=== PATIENT | male | born 1970 | race Caucasian/White ===

== ENCOUNTER 2021-01-20 13:15 | Inpatient (IN) | payer OTHER ==
[~2021-01-20] VITALS: Ht 175.3 cm; Wt 88.9 kg
[2021-01-20 13:23] VITALS: BP 173/88
[2021-01-20 15:58] LABS: HEMATOCRIT 24.9 % (42.0-52.0); HEMOGLOBIN 8.5 gm/dL (14.0-18.0); MCH 32.3 pg (26.0-34.0); MCHC 34.1 g/dL (28.0-37.0); MCV 94.6 fL (80.0-100.0); MPV 7.2 fl. (7.2-11.1); NUCLEATED RBCS 0 /100WBC; PLATELET COUNT* 190 thou/uL (150-400); RBC 2.64 mil/uL (4.50-6.00)
[2021-01-20 16:15] LABS: CALCIUM 8.4 mg/dL (8.5-10.1); CREATININE 0.7 mg/dL (0.6-1.3)
[2021-01-20 16:28] LABS: URINE BLOOD NEGATIVE (Negative); URINE COLOR YELLOW; URINE GLUCOSE-RANDOM NEGATIVE (Negative); URINE KETONES TRACE (Negative); URINE LEUKOCYTES-REFLEX NEGATIVE (Negative); URINE PROTEIN 1+ (Negative); URINE SPECIFIC GRAVITY 1.025 (1.005-1.030)
[2021-01-20 16:29] LABS: ALBUMIN 2.8 g/dL (3.4-5.0); TOTAL BILIRUBIN 0.8 mg/dL (<0.1-1.0); TOTAL PROTEIN 6.5 g/dL (6.4-8.2)
[2021-01-20 16:30] LABS: POTASSIUM 2.3 mmol/L (3.5-5.1)
[2021-01-20 16:30] LABS: ICTOTEST (BILI CONFIRMATORY) Negative (Negative); URINE BILIRUBIN 2+ (Negative); URINE NITRITE-REFLEX POSITIVE (Negative)
[2021-01-20 16:31] LABS: URINE CLARITY CLOUDY
[2021-01-20 16:35] LABS: ABSOLUTE BASOPHILS 0.1 thou/uL (0.0-0.2); ABSOLUTE EOSINOPHILS 0.1 thou/uL (0.0-0.7); ABSOLUTE LYMPHOCYTES 0.4 thou/uL (0.8-5.3); ABSOLUTE MONOCYTES 0.1 thou/uL (0.0-1.2); ABSOLUTE NEUTROPHILS 6.4 thou/uL (1.6-8.1); PLATELET ESTIMATE ADEQUATE
[2021-01-20 16:38] LABS: SQUAMOUS 0-3 Few /LPF (0-3)
[2021-01-20 16:39] LABS: AMORPHOUS URATES Many /LPF (None Seen); AMP/METHAMP Negative (Negative); BACTERIA-REFLEX None Seen /HPF (None Seen); BARBITURATES Negative (Negative); BENZODIAZEPINES Negative (Negative); CASTS None Seen /LPF (None Seen); COCAINE Negative (Negative); METHADONE Negative (Negative); OPIATES Negative (Negative); PCP Negative (Negative); THC Negative (Negative); URINE RBC None Seen /HPF (0-2); URINE WBC-REFLEX None Seen /HPF (0-5)
--- NOTE | 2021-01-20 18:03 | NUR ---
PT GIVEN A DINNER TRAY.
--- NOTE | 2021-01-20 18:06 | NUR ---
PT UP TO USE THE RESTOOM ASSISTED BY TECH.
--- NOTE | 2021-01-20 21:04 | NUR ---
PER DR MARES, PT CAN HAVE REGULAR DIET UNTIL MIDNIGHT, NPO AFTER. PT WILL GO TO SURGERY AT 0900 01/21/21
[2021-01-20 22:15] VITALS: BP 132/67
[2021-01-21] VITALS (7 sets, daily range): BP systolic 109–165; BP diastolic 68–90
[2021-01-21] MEDS ORDERED: ALLER-CHLOR4 MG PO (10:21)
--- NOTE | 2021-01-21 10:51 | EKG ---
[place] [address] ELECTROCARDIOGRAM REPORT Name: MANUEL WHITFIELD Room: [address] ADM IN [facility].#: [id number] Admission: 01/21/21 Attend Phys: Paulette Kilpatrick Discharge: Date of : 66 Date of Service: 01/20/21 1559 Report #: [id number] THIS REPORT FOR: //name// [facility] ED Test Date: 2021-01-20 Test Time: 15:59:48 Pat Name: MANUEL WHITFIELD Department: Room: [facility] Gender: M Family Program Specialist: KRISTY : 1970 Requested By: Barbara Lai Order Number: [id number] MD: Roger Herbert Measurements Intervals [place] Rate: 54 P: 67 NE: 167 QRS: 60 QRSD: 110 T: 66 QT: 502 QTc: 476 Interpretive Statements Sinus bradycardia Borderline ST depression, anterolateral leads Borderline prolonged QT interval No previous ECG available for comparison Electronically Signed On 01-21-2021 10:51:17 CDT by Roger Herbert [email or web address] <ELECTRONICALLY SIGNED> By: Roger Herbert MD, FAC 01/21/21 1051 1559 1559 Roger Herbert MD, [facility] /EPI
[2021-01-21 10:53] LABS: HEMATOCRIT 23.6 % (42.0-52.0); MCH 32.4 pg (26.0-34.0); MCHC 33.9 g/dL (28.0-37.0); MCV 95.7 fL (80.0-100.0); MPV 7.6 fl. (7.2-11.1); RBC 2.47 mil/uL (4.50-6.00); RDW-CV 16.3 % (10.5-14.5)
[2021-01-21 11:00] LABS: CALCIUM 6.9 mg/dL (8.5-10.1); CREATININE 0.5 mg/dL (0.6-1.3)
[2021-01-21 11:04] LABS: POTASSIUM 2.7 mmol/L (3.5-5.1)
[2021-01-21 18:16] LABS: MAGNESIUM 1.1 mg/dL (1.8-2.4); POTASSIUM 3.1 mmol/L (3.5-5.1)
[2021-01-22 04:00] VITALS: BP 146/95
[2021-01-22 05:47] LABS: HEMATOCRIT 25.3 % (42.0-52.0); HEMOGLOBIN 8.6 gm/dL (14.0-18.0); MCH 32.6 pg (26.0-34.0); MCHC 34.1 g/dL (28.0-37.0); MCV 95.7 fL (80.0-100.0); MPV 7.4 fl. (7.2-11.1); RBC 2.65 mil/uL (4.50-6.00); RDW-CV 16.5 % (10.5-14.5); WBC 9.9 thou/uL (4.0-11.0)
[2021-01-22 05:59] LABS: CALCIUM 6.8 mg/dL (8.5-10.1); CREATININE 0.5 mg/dL (0.6-1.3); POTASSIUM 3.4 mmol/L (3.5-5.1)
[2021-01-22 08:47] LABS: MAGNESIUM 1.7 mg/dL (1.8-2.4)
[2021-01-22 09:00] VITALS: BP 159/101
[2021-01-22 12:17] VITALS: BP 133/91
[2021-01-22 16:00] VITALS: BP 150/98
[2021-01-22 20:16] VITALS: BP 150/99
[2021-01-23 03:53] VITALS: BP 151/97
[2021-01-23 04:55] LABS: HEMOGLOBIN 8.1 gm/dL (14.0-18.0); MCH 33.1 pg (26.0-34.0); MCHC 33.9 g/dL (28.0-37.0); MCV 97.5 fL (80.0-100.0); MPV 7.4 fl. (7.2-11.1); RBC 2.46 mil/uL (4.50-6.00); RDW-CV 15.9 % (10.5-14.5); WBC 8.9 thou/uL (4.0-11.0)
[2021-01-23 05:14] LABS: CALCIUM 6.6 mg/dL (8.5-10.1); CREATININE 0.7 mg/dL (0.6-1.3); POTASSIUM 3.6 mmol/L (3.5-5.1)
--- NOTE | 2021-01-23 05:59 | NUR ---
PT A&OX4, VSS ON ROOM AIR. SR, PVC'S ON TELE MONITOR. PT STATES PAIN 4/10, REFUSED PAIN MEDICATION. IV SALINE LOCKED. PT DIET ORDER NPO AFTER MIDNIGHT, HOWEVER, PT STATES PHYSICAIN INFORMED HIM HIS LAP KATELYN WOUND NOT BE DONE UNTIL ; ALSO, PER DR. BORRERO'S NOTES SURGERY WILL BE ON 01/24 SO PT ALLOWED REG DIET AT THIS TIME. PT SLEEPING WILL. PT'S AM MAGNISIUM 1.3, REPLACEMENT STARTED ORDERED PER ELECTROLYTE PROTOCOL. WILL CONTINUE TO MONITOR.
[2021-01-23 07:30] VITALS: BP 169/99
--- NOTE | 2021-01-23 09:50 | NUR ---
WOUND NURSE: PATIENT SEEN TO ADDRESS UNSTAGEABLE PRESSURE INJURY TO LEFT SACRUM. MEASURES 2.0 X 3.0 CM. UNABLE TO DETERMINE DEPTH DUE TO PRESENCE OF NECROTIC TISSUE IN THE WOUND BED. WOUND EDGES ARE SHALLOW, PINK, IRREGULAR. PATIENT REPORTING HE OBTAINED THE WOUND FROM SPENDING TIME IN HIS CARE DUE TO HOMELESSNESS. STATES HE WOUND SPEND LONG PERIODS OF TIME IN THE BACK SEAT. PATIENT REPORTS VERY PAINFUL TO TOUCH. SMALL AMOUNT OF SEROUSANGUINOUS DRAINAGE. SURGERY DEPT HERE AND SAW PATIENT. FIRMLY ADHERENT SLOUGH IN THE WOUND BED MAY REQUIRE DEBRIDEMENT. PATIENT INSTRUCTED ON MEASURES TO PROMOTE HEALING AND PREVENT COMPLICATIONS. PATIENT STATES HE UNDERSTANDS. WOUND CARE PROVIDED PRESCRIBED.
--- NOTE | 2021-01-23 10:19 | NUR ---
CM ASSESSMENT: PT A&O, INDEPENDENT WITH ADL'S, ACTIVE AND WORKS OUTSIDE THE HOME. PT USES 0 DME. PT HAS 0 HX OF HH OR SNF. REVIEW OF PT'S CHART INFORMS THAT THE PT IS CURRENTLY UNINSURED. PT CONFIRMS THIS. MED ASSIST COMPLETED ASSESSMENT, AND PT DOES NOT QUALIFY FOR MEDICAID. CM PROVIDED PT WITH COMMUNITY RESOURCE INFO AND PRINTED INFO FOR [facility]'S GOLD PLAN (INCLUDING APPLICATION) AND HOW TO APPLY ONLINE. CM WILL REMAIN AVAILABLE TO ASSIST AND FOLLOW NEEDED.
[2021-01-23 12:00] VITALS: BP 135/89
[2021-01-23 16:00] VITALS: BP 126/86
[2021-01-23 16:01] LABS: HEMATOCRIT 25.9 % (42.0-52.0); HEMOGLOBIN 8.6 gm/dL (14.0-18.0); MCH 32.3 pg (26.0-34.0); MCHC 33.3 g/dL (28.0-37.0); MCV 96.9 fL (80.0-100.0); MPV 7.2 fl. (7.2-11.1); NUCLEATED RBCS 0 /100WBC; PLATELET COUNT* 162 thou/uL (150-400); RBC 2.67 mil/uL (4.50-6.00); RDW-CV 16.6 % (10.5-14.5); WBC 8.6 thou/uL (4.0-11.0)
[2021-01-23 16:15] LABS: ALBUMIN 2.1 g/dL (3.4-5.0); CALCIUM 6.8 mg/dL (8.5-10.1); CREATININE 0.6 mg/dL (0.6-1.3); PHOSPHORUS* 1.8 mg/dL (2.5-4.9); POTASSIUM 3.7 mmol/L (3.5-5.1); TOTAL BILIRUBIN 0.5 mg/dL (<0.1-1.0); TOTAL PROTEIN 5.5 g/dL (6.4-8.2)
[2021-01-23 16:57] LABS: ABSOLUTE LYMPHOCYTES 0.3 thou/uL (0.8-5.3); ABSOLUTE MONOCYTES 0.3 thou/uL (0.0-1.2); ABSOLUTE NEUTROPHILS 7.9 thou/uL (1.6-8.1)
[2021-01-23 16:58] LABS: HYPOCHROMASIA Occasional; MACROCYTES Occasional; PLATELET ESTIMATE ADEQUATE
--- NOTE | 2021-01-23 17:08 | 2DMMODE ---
[place] [address] 2 D/M-MODE ECHOCARDIOGRAM Name: MANUEL WHITFIELD Room: [address] IN [place]#: [id number] Admission: 01/21/21 Attend Phys: Paulette Kilpatrick Discharge: Date of : 66 Date of Service: 01/23/21 1708 Report #: [id number] THIS REPORT FOR: cc: FAM - No family physician/PCP FAM - No family physician/PCP Roger Herbert MD [facility] ~ APPROVED REPORT Study performed: 01/23/2021 16:03:48 EXAM: Comprehensive 2D, Doppler, and color-flow Echocardiogram Patient Location: In-Patient Room #: 229 BSA: 1.92 HR: 68 bpm BP: 169/99 mmHg Other Information Study Quality: Good Indications Peripheral Edema 2D Dimensions IVSd: 10.77 (7-11mm) LVOT Diam: 20.18 (18-24mm) LVDd: 46.49 mm PWd: 10.77 (7-11mm) Ascending Ao: 35.63 (22-36mm) LVDs: 26.89 (25-40mm) Aortic Root: 36.83 mm Volumes Left Atrial Volume (Systole) LA ESV Index: 28.10 mL/m2 Aortic Valve AoV Peak Andrea.: 1.14 m/s AO Peak Gr.: 5.22 mmHg LVOT Max P.35 mmHg AO Mean Gr.: 2.79 mmHg LVOT Mean P.00 mmHg LVOT Max V: 1.04 m/s AO V2 VTI: 22.27 cm LVOT Mean V: 0.65 m/s GUTIERREZ (VTI): 3.73 cm2 LVOT V1 VTI: 25.97 [place] [address] 2 D/M-MODE ECHOCARDIOGRAM Name: MANUEL WHITFIELD Room: [address] IN [facility]#: [id number] Admission: 01/21/21 Attend Phys: Paulette Kilpatrick Discharge: Date of : 66 Date of Service: 01/23/21 1708 Report #: [id number] E/A Ratio: 1.21 MV Decel. Time: 186.47 ms MV E Max Andrea.: 0.86 m/s MV PHT: 54.08 ms MVA (PHT): 4.07 cm2 TDI E/Lateral E': 5.73 E/Medial E': 6.14 Medial E' Andrea.: 0.14 m/s Lateral E' Andrea.: 0.15 m/s Pulmonary Valve PV Peak Andrea.: 0.99 m/s PV Peak Gr.: 3.94 mmHg Left Ventricle The left ventricle is normal size. There is normal LV segmental wall motion. There is normal left ventricular wall thickness. Left ventricular systolic function is normal. The left ventricular ejection fraction is within the normal range. LVEF is 55-60%. The left ventricular diastolic function is normal. Right Ventricle The right ventricle is normal size. The right ventricular systolic function is normal. Atria The left atrium size is normal. The right atrium size is normal. Aortic Valve The Aortic valve is sclerotic. No aortic regurgitation is present. There is no aortic valvular stenosis. Mitral Valve The mitral valve is normal in structure. There is trace mitral valve regurgitation noted. No evidence of mitral valve stenosis. Tricuspid Valve The tricuspid valve is normal in structure. There is trace tricuspid valve regurgitation noted. Pulmonic Valve The pulmonary valve is normal in structure. There is no pulmonic valvular regurgitation[place] [address] 2 D/M-MODE ECHOCARDIOGRAM Name: MANUEL WHITFIELD Room: [address] IN [facility]#: [id number] Admission: 01/21/21 Attend Phys: Paulette Kilpatrick Discharge: Date of : 66 Date of Service: 01/23/21 1708 Report #: [id number] The aortic root is normal in size. IVC is normal in size and collapses >50% with inspiration. Pericardium There is no pericardial effusion. <Conclusion> LVEF is 55-60%. The Aortic valve is sclerotic. <ELECTRONICALLY SIGNED> By: Roger Herbert MD, [facility] 01/23/211707 07 07 Roger Herbert MD, [facility] /INF
--- NOTE | 2021-01-23 18:32 | NUR ---
mag level 1.3 this am. pt was dosed per electrolyte protocol for replacement and was set for redraw at 1800. lab was unsuccessful times 3 attempts and now does not want to be stuck again. per Dr. hilliard can redraw in Am with other labs.
--- NOTE | 2021-01-23 19:00 | NUR ---
PT TOLERATING DIET WELL WITH NO COMPLAINTS THROUGHOUT THE DAY. CARDIAC MONITORING SINUS RHYTHM VS SINUS ARRHYTHMIA. PT SCHEDULED FOR SURGERY TOMORROW AND IS TO BE NPO AT MIDNIGHT. UP AD AZEB.
[2021-01-23 19:42] VITALS: BP 142/85
[2021-01-24 00:30] VITALS: BP 142/82
[2021-01-24 02:13] VITALS: BP 142/82
[2021-01-24 03:48] VITALS: BP 152/89
--- NOTE | 2021-01-24 04:44 | NUR ---
PT A&OX4, VSS ON ROOM AIR, PT UP AD AZEB. IV SALINE LOCKED. SR ON TELE MONITOR. PT NPO SINCE MIDNIGHT TO AM SURGERY. PRN PAIN MED REQUESTED AND GIVEN ORDERED. WILL CONTINUE TO MONITOR.
[2021-01-24 06:04] LABS: ABSOLUTE BASOPHILS 0.1 thou/uL (0.0-0.2); ABSOLUTE EOSINOPHILS 0.1 thou/uL (0.0-0.7); ABSOLUTE LYMPHOCYTES 0.7 thou/uL (0.8-5.3); ABSOLUTE MONOCYTES 0.3 thou/uL (0.0-1.2); ABSOLUTE NEUTROPHILS 7.4 thou/uL (1.6-8.1); EOSINOPHILS 1.5 %; HEMATOCRIT 26.7 % (42.0-52.0); HEMOGLOBIN 8.8 gm/dL (14.0-18.0); LYMPHOCYTES 8.2 %; MCH 32.3 pg (26.0-34.0); MCHC 33.2 g/dL (28.0-37.0); MCV 97.3 fL (80.0-100.0); MPV 7.5 fl. (7.2-11.1); NUCLEATED RBCS 0 /100WBC; PLATELET COUNT* 163 thou/uL (150-400); POLYS 85.3 %; RBC 2.74 mil/uL (4.50-6.00); RDW-CV 15.9 % (10.5-14.5); WBC 8.7 thou/uL (4.0-11.0)
[2021-01-24 06:16] LABS: CALCIUM 6.8 mg/dL (8.5-10.1); CREATININE 0.6 mg/dL (0.6-1.3); POTASSIUM 3.6 mmol/L (3.5-5.1); TOTAL BILIRUBIN 0.5 mg/dL (<0.1-1.0); TOTAL PROTEIN 5.3 g/dL (6.4-8.2)
[2021-01-24 12:30] VITALS: BP 135/87
[2021-01-24 14:08] LABS: CALCIUM 6.7 mg/dL (8.5-10.1); CREATININE 0.6 mg/dL (0.6-1.3); POTASSIUM 4.3 mmol/L (3.5-5.1)
[2021-01-24 14:11] LABS: MAGNESIUM 1.5 mg/dL (1.8-2.4); PHOSPHORUS* 2.7 mg/dL (2.5-4.9)
--- NOTE | 2021-01-24 14:59 | NUR ---
PLAN OF CARE: PHYSICIAN INFORMS THAT THE PT MAY BE READY TO D/C HOME TOMORROW. NO CM D/C PLANNING NEEDS ANTICIPATED. CM PREVIOUSLY PROVIDED PT WITH COMMUNITY RESOURCE LIST AND INFO FOR [facility] GOLD PLAN [facility] INFO FOR OUTPATIENT CARE AT D/C. CM WILL REMAIN AVAILABLE TO ASSIST AND FOLLOW NEEDED.
[2021-01-24 16:00] VITALS: BP 133/84
[2021-01-24 20:00] VITALS: BP 136/80
[2021-01-25] VITALS (8 sets, daily range): BP systolic 110–144; BP diastolic 70–82
[2021-01-25 04:16] LABS: HEMATOCRIT 25.4 % (42.0-52.0); HEMOGLOBIN 8.6 gm/dL (14.0-18.0); MCH 32.9 pg (26.0-34.0); MCHC 33.8 g/dL (28.0-37.0); MCV 97.3 fL (80.0-100.0); MPV 7.3 fl. (7.2-11.1); RBC 2.61 mil/uL (4.50-6.00); RDW-CV 15.6 % (10.5-14.5); WBC 9.7 thou/uL (4.0-11.0)
[2021-01-25 04:51] LABS: ALBUMIN 1.8 g/dL (3.4-5.0); CREATININE 0.5 mg/dL (0.6-1.3); POTASSIUM 3.9 mmol/L (3.5-5.1); TOTAL BILIRUBIN 0.3 mg/dL (<0.1-1.0)
--- NOTE | 2021-01-25 04:58 | NUR ---
PATIENT SLEPT WELL DURING THIS SHIFT. PT UP AD AZEB AND AMBULATES IN HALLWAY. PT IS ON ROOM AIR AND SALINE LOCKED. PT IS SR/ST ON NUTRITION TECH. PT RECEIVED PAIN MEDICATION X1 AT HS. PT DENIES NEEDS AT THIS TIME. FREQUENTLY USED ITEMS AND CALL LIGHT WITHIN REACH. SIDERAILS UPX2. WILL CONTINUE TO MONITOR.
[2021-01-25] MEDS ORDERED: HYDROCODON-ACE1 EAC7 PO (08:22)
[2021-01-25] MEDS ORDERED: THERA M PLUS T1 EAC2 PO (08:22)
--- NOTE | 2021-01-25 08:53 | NUR ---
ASSUMED CARE OF PT THIS AM AROUND 07- VICE PRESIDENT NETWORK DEVELOPMENT IN PLACE ORDERED, TRACING SR- UPON ASSESSMENT PT NOTED TO BE RESTING IN BED- PT A&O X4- CONT OF B/B- UP AD-AZEB IN ROOM, STEADY GAIT NOTED- VSS, O2 SAT 100% ON RA- RUL NOTED WITH EXPIRATORY WHEEZES, RESP EVEN AND UN-LABORED- ABD NOTED WITH SLIGHT DISTENTION/TENDERNESS; BS ACTIVE- 4 ABD LAP SITES NOTED ALAN, C/D/I WITH NO DRAINAGE OR S/S INFECTION NOTED- PT REPORTS PAIN TO BE IMPROVED 07/03 TO ABD- GOOD PO INTAKE NOTED THIS AM- LAST BM REPORTED 01/24/21- IV NOTED TO LEFT AND RIGHT AC INTACT AND SL- MAG REPLACED PER PROTOCOL THIS AM- DRESSING NOTED TO SACRAL WOUND INTACT- CALL LIGHT AND PERSONAL BELONGINGS WITH IN REACH- PT MAKES NEEDS KNOWN- ALL NEEDS MET AT THIS TIME
[2021-01-25] MEDS ORDERED: OXYCODONE HCL 55 MG PO (10:49)
--- NOTE | 2021-01-25 12:06 | OP ---
[address] [address] OPERATIVE REPORT Name: MANUEL WHITFIELD Room: [address] IN .R.#: [id number] Admission: 01/21/21 Attend Phys: Gareth Jerez Discharge: 01/25/21 Date of : 66 Report #: [id number] THIS REPORT FOR: cc: FAM - No family physician/PCP FAM - No family physician/PCP Presley Do DO ~ DATE OF SURGERY: 01/24/2021 PREOPERATIVE DIAGNOSIS: Acute cholecystitis. POSTOPERATIVE DIAGNOSIS: Acute cholecystitis. PROCEDURE PERFORMED: Laparoscopic cholecystectomy. SURGEON: Presley Do DO. CO-SURGEON: David Robles DO, PGY5. CHILD DEVELOPMENT TEACHER: Greg Moya, PGY1. ANESTHESIA: General and regional. SPECIMENS: Gallbladder. ESTIMATED BLOOD LOSS: 20. FINDINGS: Significant amount of fluid throughout the abdomen consistent with ascites. HISTORY OF PRESENT ILLNESS: The patient is a 50-year-old gentleman who presented to the emergency room with abdominal pain, mostly right upper quadrant. He had similar episodes in the past. Workup did reveal acute cholecystitis. DESCRIPTION OF PROCEDURE: After risks, benefits and alternatives were discussed at length, he was taken to the operating room. Risks discussed include bleeing, infection, and damage to nearby structures including the biliary tree and bowel. Patient voiced complete understanding and elected to proceed with surgery. The patient was placed in the supine position. SCDs applied to bilateral lower extremities. A safety belt was placed across the patient's waist. The patient was receiving Zosyn in the perioperative period. General endotracheal anesthesia was administered without any complications. The patient's abdomen was prepped and draped in the standard sterile fashion. Timeout was performed to confirm [place] [address] OPERATIVE REPORT Name: MANUEL WHITFIELD Room: [address]#: [id number] Admission: 01/21/21 Attend Phys: Gareth Jerez Discharge: 01/25/21 Date of : 66 Report #: [id number] An 11 blade scalpel was used to make an incision just above the umbilicus. Electrocautery used for hemostasis and to dissect down to the level of fascia. Once the fascia was encountered, it was scored with electrocautery, grasped between 2 Kochers and elevated. Hemostat was used bluntly into the peritoneum. Two stitches of 0 Vicryl were placed on either side of the fascia. A Wei trocar was inserted into the abdomen and secured in place. Insufflation was initiated. Intra-abdominal contents were inspected. There appeared to be a significant amount of fluid throughout the abdomen that was mostly clear, yellowish in nature, possibly related to ascites. It did appear that he did have some fatty liver disease as well. Attention was turned towards finding the gallbladder. There was omentum over the liver. This was retracted caudad. Gallbladder could be seen. It was grasped and elevated. Three more trocars were placed under direct visualization, 1 subxiphoid, 2 in the right upper quadrant. Gallbladder was grasped and elevated. There were some adhesions to the gallbladder that were taken down carefully with electrocautery. Portions of the duodenum and stomach were adhered to the medial aspect of the gallbladder. These were carefully swept away from the surgical field. At this point, the visceral peritoneum was scored just around Steve's pouch. This was carried up laterally and medially. There were some areas of bleeding that were encountered on the medial aspect of the gallbladder. These were cauterized. The cystic duct was then carefully isolated using a combination of hook electrocautery and blunt dissection with a Maryland dissector. Once the cystic duct was circumferentially isolated, it could be seen going up to the gallbladder. Attention was turned medially towards the cystic artery. Again, the cystic artery was carefully dissected out using Maryland dissector and hook electrocautery. Once both structures were isolated seen going up into the gallbladder, critical view of safety was obtained. Three Weck clips were placed on the cystic artery. Two Weck clips were placed on the proximal cystic duct and 1 standard 5 mm clip was placed on the distal cystic duct. Both structures were cut. At this point, electrocautery was used to carefully dissect the gallbladder off the bed of the liver. There was a posterior artery that was seen going up into the gallbladder that was encountered shortly after dissection. This artery was carefully isolated and clips were placed proximally and distally. This artery was cut. The gallbladder was again dissected off the bed of the liver, placed in a laparoscopic EndoCatch bag. Bleeding on the liver bed was controlled with hook electrocautery. We then turned our attention towards inspecting the abdomen. We suctioned fluid from the right upper quadrant and turned our attention down towards the pelvis and more fluid was suctioned out. We then looked up at the stomach and up towards the spleen. There was a significant amount of fluid there. This fluid was suctioned. The stomach was investigated. There was no evidence of obvious inflammation or perforation. At this point, we reinspected our gallbladder fossa and placed FloSeal within the gallbladder fossa to aid with hemostasis. All trocars were then removed under direct visualization. Insufflation was let down. Gallbladder and its contents were removed from the supraumbilical [place] [address] OPERATIVE REPORT Name: MANUEL WHITFIELD Room: [address]#: [id number] Admission: 01/21/21 Attend Phys: Gareth Jerez Discharge: 01/25/21 Date of : 66 Report #: [id number] supraumbilical fascia was reapproximated with 1 stitch of 0 Vicryl in a [id number] fashion. All skin incisions were reapproximated with a 4-0 Monocryl in a subcuticular fashion. All needle, sponge and instrument counts were correct x 2 at the end of the case. Skin glue was applied to all incisions. The patient was then awoken from general anesthesia and transferred to PACU in stable condition. <ELECTRONICALLY SIGNED> By: Presley Do DO 01/25/21 1206 0932 1015Presley Do DO /nt
--- NOTE | 2021-01-25 15:23 | NUR ---
PLAN FOR THE PT TO D/C HOME TODAY WITH SELF-CARE. NO CM DC PLANNING NEEDS ANTICIAPTED. CM WILL REMAIN AVAILABLE TO ASSIST AND FOLLOW NEEDED.
--- NOTE | 2021-01-25 18:06 | PATH ---
[address] [address] PATHOLOGY RPT PROCEDURE Name: MANUEL WHITFIELD Room: [address]#: [id number] Admission: 01/21/21 Date of : 66 Discharge: 01/25/21 Report #: [id number] Path Case #: [id number] [facility] Accession Number: [id number] . 01 Material submitted: . gallbladder - GALLBLADDER . 01 Clinical history: . LAPAROSCOPIC CHOLECYSTECTOMY ACUTE CHOLECYSTITIS ELEVATED LIPASE, HYPOKALEMIA . 02 Diagnosis: Gallbladder: - Chronic cholecystitis. ([facility]; 01/25/2021) QTP 01/25/2021 1527 Local . 02 Electronically signed: . Tyrese Buckner MD, Pathologist NPI- [id number] . 01 Gross description: . Fixative: Formalin Labeled: Gallbladder Specimen received: Intact gallbladder Dimensions: 9.0 x 3.5 x 1.2 cm Serosa: Light morales to light yellow Lymph node: None identified Mucosa: Velvety and light green to light red Average wall thickness: Up to 0.2 cm Calculi: None identified Abnormalities: None identified . A1- Melter Operator body, fundus, and the cystic duct margin. ([facility]; 01/24/2021) [facility] 01/24/2021 1629 Local . 02 Pathologist provided ICD-10: K81.1 . 02 CPT . 205123 Specimen Comment: A courtesy copy of this report has been sent to [phone] Specimen Comment: [phone] Specimen Comment: Report sent to / DR NO Performed at: [address] [address] PATHOLOGY RPT PROCEDURE Name: MANUEL WHITFIELD Room: [address]#: [id number] Admission: 01/21/21 Date of : 66 Discharge: 01/25/21 Report #: [id number] Path Case #: [id number] [address] [id number] MD Bruno Chacon MD Phone: [phone] Performed at: [address] [id number] MD Tyrese Buckner MD Phone: [phone]
== END 2021-01-25 11:00 | disposition home or self-care (01) | DRG 417 ==
LOC: M.ERS 13:15 → M.TBA-ER 18:27 → M.2W 01-21 09:49
PROVIDERS: Family Medicine; Physician Assistant; Surgery; ADMIT Internal Medicine; ATTEND Internal Medicine
PROC: 0W9G4ZZ Drainage of Peritoneal Cavity, Percutaneous Endoscopic Approach (ICD-10-PCS; principal; 2021-01-24)
PROC: 0FT44ZZ Resection of Gallbladder, Percutaneous Endoscopic Approach (ICD-10-PCS; principal; 2021-01-24)
DX: K81.0 Acute cholecystitis (principal); K85.90 Acute pancreatitis without necrosis or infection, unspecified; N39.0 Urinary tract infection, site not specified; E46 Unspecified protein-calorie malnutrition; R18.8 Other ascites; F17.210 Nicotine dependence, cigarettes, uncomplicated; Z20.822 Contact with and (suspected) exposure to COVID-19; E87.6 Hypokalemia; E83.42 Hypomagnesemia; E83.51 Hypocalcemia; D64.9 Anemia, unspecified; K76.0 Fatty (change of) liver, not elsewhere classified; L89.899 Pressure ulcer of other site, unspecified stage; Z23 Encounter for immunization; Z59.0 Homelessness; Z68.28 Body mass index [BMI] 28.0-28.9, adult

== ENCOUNTER 2021-02-20 10:44 | Inpatient (IN) | payer OTHER ==
[~2021-02-20] VITALS: Ht 177.8 cm; Wt 76.2 kg
--- NOTE | ~2021-02-20 | PROC ---
[address] [address] PROCEDURE REPORT Name: MANUEL WHITFIELD Room: [address] IN ..#: [id number] Admission: 02/20/21 Attend Phys: Sharon Walters MD Discharge: 02/23/21 Date of : 66 Report #: [id number] THIS REPORT FOR: cc: FAM - No family physician/PCP FAM - No family physician/PCP [facility],Medical Records Staff ~ For GI report, please see the Provation report in Perceptive 7 content. By: 0701Medical Records Staff SENG /GIOVANI
[~2021-02-20 10:44] MED LIST: ALLER-CHLOR4 MG PO; HYDROCODON-ACE1 EAC7 PO; OXYCODONE HCL 55 MG PO; THERA M PLUS T1 EAC2 PO
[2021-02-20 10:53] VITALS: BP 139/64
[2021-02-20 12:39] LABS: URINE BLOOD TRACE (Negative); URINE CLARITY CLEAR; URINE COLOR YELLOW; URINE GLUCOSE-RANDOM NEGATIVE (Negative); URINE LEUKOCYTES-REFLEX NEGATIVE (Negative); URINE NITRITE-REFLEX NEGATIVE (Negative); URINE PROTEIN 1+ (Negative); URINE SPECIFIC GRAVITY >= 1.030 (1.005-1.030)
[2021-02-20 12:42] LABS: URINE BILIRUBIN 2+ (Negative); URINE KETONES 3+ (Negative)
[2021-02-20 12:43] LABS: ICTOTEST (BILI CONFIRMATORY) Positive (Negative)
[2021-02-20 14:25] LABS: ABSOLUTE BASOPHILS 0.1 thou/uL (0.0-0.2); ABSOLUTE LYMPHOCYTES 0.5 thou/uL (0.8-5.3); ABSOLUTE MONOCYTES 0.5 thou/uL (0.0-1.2); ABSOLUTE NEUTROPHILS 9.5 thou/uL (1.6-8.1); BASOPHILS 0.8 %; EOSINOPHILS 0.2 %; HEMATOCRIT 37.7 % (42.0-52.0); HEMOGLOBIN 12.7 gm/dL (14.0-18.0); LYMPHOCYTES 4.6 %; MCH 33.8 pg (26.0-34.0); MCHC 33.6 g/dL (28.0-37.0); MCV 100.6 fL (80.0-100.0); MONOCYTES 4.3 %; MPV 7.1 fl. (7.2-11.1); NUCLEATED RBCS 0 /100WBC; PLATELET COUNT* 83 thou/uL (150-400); POLYS 90.1 %; RBC 3.74 mil/uL (4.50-6.00); RDW-CV 16.1 % (10.5-14.5); WBC 10.6 thou/uL (4.0-11.0)
[2021-02-20 14:34] LABS: CALCIUM 8.6 mg/dL (8.5-10.1); CREATININE 0.8 mg/dL (0.6-1.3); POTASSIUM 3.5 mmol/L (3.5-5.1)
[2021-02-20 14:39] LABS: ALBUMIN 3.4 g/dL (3.4-5.0); TOTAL BILIRUBIN 2.8 mg/dL (<0.1-1.0); TOTAL PROTEIN 7.5 g/dL (6.4-8.2)
[2021-02-20 20:00] VITALS: BP 151/101
[2021-02-21] VITALS: BP 133/80
[2021-02-21 04:00] VITALS: BP 125/83
[2021-02-21 04:25] LABS: HEMATOCRIT 31.3 % (42.0-52.0); MCH 33.9 pg (26.0-34.0); MCHC 33.9 g/dL (28.0-37.0); MCV 99.9 fL (80.0-100.0); MPV 7.2 fl. (7.2-11.1); RBC 3.13 mil/uL (4.50-6.00); RDW-CV 16.5 % (10.5-14.5); WBC 4.3 thou/uL (4.0-11.0)
[2021-02-21 04:29] LABS: ALBUMIN 2.5 g/dL (3.4-5.0); CALCIUM 7.8 mg/dL (8.5-10.1); CREATININE 0.9 mg/dL (0.6-1.3); MAGNESIUM 1.2 mg/dL (1.8-2.4); POTASSIUM 3.1 mmol/L (3.5-5.1); TOTAL BILIRUBIN 1.7 mg/dL (<0.1-1.0); TOTAL PROTEIN 5.9 g/dL (6.4-8.2)
[2021-02-21 04:30] LABS: HEMOGLOBIN 10.6 gm/dL (14.0-18.0)
[2021-02-21 08:25] LABS: APTT 29.2 Seconds (25.0-31.3); INR 1.7; PROTIME 17.6 Seconds (9.20-11.50)
[2021-02-21 12:26] VITALS: BP 128/80
--- NOTE | 2021-02-21 12:26 | NUR ---
US STATES PARENCENTESIS COMPLETE RLQ 2400 ML
--- NOTE | 2021-02-21 12:29 | NUR ---
GAVE REPORT OF PT AT 0800 TO KAIDEN HOWELL AND RSUMED CARE AT 1030 PT WENT TO PARENCENTESIS PROCEDURE AT 1030 PT CAME BACK FROM PROCEDURE AT 1215
[2021-02-21 13:19] LABS: BF RBC 1009 /mm3
[2021-02-21 13:30] LABS: CLARITY HAZY; TOTAL VOLUME 2400 ml
[2021-02-21 13:31] LABS: SOURCE ASCITES; TOTAL CELL COUNT 247 /mm3
[2021-02-21 13:49] LABS: BF EOSINOPHILS 6 %; BF LYMPHOCYTES 74 %; BF MONOCYTES 2 %; BF POLYS 18 %; BF TISSUE 40 /100 WBC
[2021-02-21 20:00] VITALS: BP 151/89
--- NOTE | 2021-02-21 22:24 | NUR ---
Assumed care of pt at 1900. Pt resting in bed, denies any pain. States main concern is bowels, states he only is able to go a little at a time, states having both constipation and diarrhea. Pt has lost home and and is living in car, states job is questionable and has only worked one day in past month. Case management consulted.
[2021-02-22] VITALS (8 sets, daily range): BP systolic 120–144; BP diastolic 75–95
--- NOTE | 2021-02-22 01:04 | NUR ---
Pt ambulating to BR independently. Denies any needs at this time.
[2021-02-22 02:29] LABS: HEMATOCRIT 30.3 % (42.0-52.0); HEMOGLOBIN 10.5 gm/dL (14.0-18.0); MCH 34.4 pg (26.0-34.0); MCHC 34.7 g/dL (28.0-37.0); MCV 99.1 fL (80.0-100.0); MPV 7.3 fl. (7.2-11.1); NUCLEATED RBCS 0 /100WBC; RBC 3.06 mil/uL (4.50-6.00); RDW-CV 16.7 % (10.5-14.5); WBC 3.6 thou/uL (4.0-11.0)
[2021-02-22 02:37] LABS: PLATELET COUNT* 48 thou/uL (150-400)
[2021-02-22 04:30] LABS: ABSOLUTE LYMPHOCYTES 0.5 thou/uL (0.8-5.3); ABSOLUTE MONOCYTES 0.1 thou/uL (0.0-1.2)
[2021-02-22 04:31] LABS: PLATELET ESTIMATE DECREASED
[2021-02-22 04:32] LABS: ANISOCYTOSIS 1+; POLYCHROMASIA 2+
[2021-02-22 04:33] LABS: HYPOCHROMASIA 1+
[2021-02-22 09:09] LABS: HEPATITIS B SURFACE AG Negative (Negative)
[2021-02-22] MEDS ORDERED: OXYCODONE HCL 55 MG PO (11:19)
[2021-02-22] MEDS ORDERED: SPIRONOLACTONE25 MG PO (11:19)
[2021-02-22] MEDS ORDERED: LASIX 20 MG TAB20 MG PO (11:19)
[2021-02-22] MEDS ORDERED: PRILOSEC OTC20 MG PO (11:19)
[2021-02-22] MEDS ORDERED: MIRALAX17 GM PO (11:19)
[2021-02-23 02:13] VITALS: BP 123/80
[2021-02-23 04:22] LABS: HEMATOCRIT 29.9 % (42.0-52.0); HEMOGLOBIN 10.1 gm/dL (14.0-18.0); MCH 34.2 pg (26.0-34.0); MCHC 33.9 g/dL (28.0-37.0); MCV 100.8 fL (80.0-100.0); MPV 7.6 fl. (7.2-11.1); RBC 2.96 mil/uL (4.50-6.00); RDW-CV 16.5 % (10.5-14.5)
[2021-02-23 04:36] VITALS: BP 122/76
[2021-02-23 04:38] LABS: ALBUMIN 2.3 g/dL (3.4-5.0); CALCIUM 8.1 mg/dL (8.5-10.1); CREATININE 0.6 mg/dL (0.6-1.3); TOTAL BILIRUBIN 0.6 mg/dL (<0.1-1.0); TOTAL PROTEIN 5.5 g/dL (6.4-8.2)
[2021-02-23 04:46] LABS: POTASSIUM 2.3 mmol/L (3.5-5.1)
--- NOTE | 2021-02-23 07:10 | NUR ---
CHANGE OF SHIFT REPORT GIVEN PATIENT SEEN AT BEDSIDE, IN BED RESTING ASSUMED PATIENT CARE
[2021-02-23 08:00] VITALS: BP 125/93
--- NOTE | 2021-02-23 09:02 | NUR ---
Pt is A&O. Currently homeless, living in his car, post from his . Pt has limited family support in the area. Has a job, but has only been able to work 1 day, d/t repeat hospitalizations, Pt believes that his job is waiting for him once he is medically stable to return. No DME. No hx of HH or SNF. Hospital will pay for Pt's meds per CM Director, SOHA to pickler helper from pharmacy at ok. CM provided Pt with [facility] info for their [facility]. Anticipate ok today.
--- NOTE | 2021-02-23 14:07 | PATH ---
[address] [address] PATHOLOGY RPT PROCEDURE Name: MANUEL WHITFIELD Room: [address] IN .R.#: [id number] Admission: 02/20/21 Date of : 66 Discharge: Report #: [id number] Path Case #: [id number] [facility] Accession Number: [id number] . 01 Material submitted: . gastrointestinal site - BIOPSY TO R/O GASTRITIS . 01 Clinical history: . EGD IN OR GI BLEED . 02 Diagnosis: Submitted as, "biopsy, rule out gastritis": - Moderate chronic gastritis with abundant Helicobacter pylori organisms. . ([facility]; 02/23/2021) [facility] 02/23/2021 1222 Local . 02 Comment: Special stain: H. pylori immuno . ([facility]OLA:[facility]; 02/23/2021) . 02 Electronically signed: . Tyrese Buckner MD, Pathologist NPI- [id number] . 01 Gross description: . The specimen is submitted in formalin, labeled "Luis M Edgardoheidi, rhea R/O gastritis". Received are 2 segments of pale theodore tissue ranging in size from 0.4 to 0.5 cm in maximum dimensions. The specimen is submitted in cassette A1. ([facility] [place]; 02/22/2021) NRI/NRI 02/22/2021 1808 Local . 02 Pathologist provided ICD-10: K29.50, B96.81 . 02 CPT . 726337, D70042 Specimen Comment: A courtesy copy of this report has been sent to [phone] Specimen Comment: [phone] Specimen Comment: Report sent to / DR CHOUDHURY Performed at: [address] [id number] MD Bruno Chacon MD Phone: [phone] [place] [address] PATHOLOGY RPT PROCEDURE Name: MANUEL WHITFIELD Room: [address] IN [facility]#: [id number] Admission: 02/20/21 Date of : 66 Discharge: Report #: [id number] Path Case #: [id number] Performed at: [address] [address] Breonna Mao, [place], [place] [id number] MD Tyrese Buckner MD Phone: [phone]
--- NOTE | 2021-02-23 16:36 | CON ---
[address] [address] CONSULTATION Name: MANUEL WHITFIELD Room: [address] IN .R.#: [id number] Admission: 02/20/21 Attend Phys: Sharon Walters MD Discharge: Date of : 66 Report #: [id number] THIS REPORT FOR: cc: FAM - No family physician/PCP FAM - No family physician/PCP Anu Whyte MD ~ DATE OF CONSULTATION: 02/21/2021 The patient does not have a PCP. Please note the time of this dictation, the patient was seen and physically examined by myself. REASON FOR CONSULTATION: Questionable hematemesis, some abdominal discomfort. HISTORY OF PRESENT ILLNESS: This is a 50-year-old male who presented to the Emergency Room with chief complaint of worsening of some increased abdominal discomfort over the past week along with some distention he has noted. He also states he has been coughing up or regurgitating some bright red blood that he has noted also over this time. The patient he denies any nausea or vomiting; however, he did vomit when he got to the Emergency Room and he said it was all bile in consistency. The patient states his bowels, they have been off since he had his surgery and he has not been going regularly. Currently, he has not had a bowel movement for several days. He states his diet is poor currently because he is living out of his car and has not had intake of any much fiber. The patient states when he was in his 20s in [place], he did undergo an EGD and a colonoscopy at that time and was told just to increase fiber in his diet because reason why he had that done was he had blood in his stool. He has not had any evaluation since that time. ALLERGIES: No known drug allergies. MEDICATIONS FROM HOME: None except for a multivitamin and allergy medicine. PAST MEDICAL HISTORY: He does have a history of hypertension in the past. PAST SURGICAL HISTORY: Recent laparoscopic cholecystectomy done on 01/22/2021. FAMILY HISTORY: Negative for any GI or female cancer. SOCIAL HISTORY: He does smoke 8 to 10 cigarettes a day and alcohol use is 2 pints of alcohol daily, vodka in nature. REVIEW OF SYSTEMS: Twelve point review of systems is essentially negative except what [place] [address] CONSULTATION Name: MANUEL WHITFIELD Room: [address] IN [facility]#: [id number] Admission: 02/20/21 Attend Phys: Sharon Walters MD Discharge: Date of : 66 Report #: [id number] PHYSICAL EXAMINATION: VITAL SIGNS: Temperature 36.7, BP 139/64, pulse tachycardic at 110, respirations are 17. HEART: Regular rate and rhythm, somewhat tachycardic. LUNGS: Clear. ABDOMEN: Soft, distended, positive fluid wave noted. Incisions from recent laparoscopic cholecystectomy, one below the umbilicus is slightly red and increased tenderness. LOWER EXTREMITIES: He does have a little bit of swelling noted as well. LABORATORY DATA: Hemoglobin on admission was 12.7, he has 10.6; white count is 4.3; platelets are 51. PT is 17.6, INR is 1.7, total bilirubin is 2.8 and down to 1.7; alkaline phosphatase was 164, he is down to 132. ALT was 54, he is down to 38; AST was 200 and down to 122. His GFR is 102. Lipase is 358. His discriminant function on admission was 29 and today it is 27 and his MELD score is 14 today. IMAGING: CT scan showed diffuse severe steatosis, splenomegaly, large amount of fluid noted in the abdomen and splenic varices noted and 14 cm size of his spleen. IMPRESSION: 1. Hematemesis. 2. 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 3. Elevated LFTs. Discriminant function 29 on admission, 27 today. MELD score is 14. 4. Abdominal pain, distention, noted ascites. 5. Thrombocytopenia. 6. History of alcohol abuse, two pints of vodka daily. PLAN: 1. EGD today with Dr. Whyte. 2. Labs, acute hepatitis panel. 3. Ultrasound of the abdomen with paracentesis is pending. We will get labs of cell count, cytology, total protein and albumin as well as culture and sensitivity of the fluid once performed. 4. Further recommendations to be made after the above has been noted. Please note, 35 minutes was spent face to face and in [place] [address] CONSULTATION Name: MANUEL WHITFIELD Room: [address] IN [facility]#: [id number] Admission: 02/20/21 Attend Phys: Sharon Walters MD Discharge: Date of : 66 Report #: [id number] Thank you for allowing us to participate in this patient's care. Please do not hesitate to call with any questions in regard to this consult. <ELECTRONICALLY SIGNED> By: Anu Whyte MD 02/23/21 1636 0834 [id number] Whyte MD /nt
[2021-02-23 17:48] VITALS: BP 125/93
--- NOTE | 2021-02-23 18:30 | NUR ---
discharge to home iv removed and personal belongings returned dc instructions given and copies given patient assisted out via wc to car
== END 2021-02-23 18:35 | disposition home or self-care (01) | DRG 433 ==
LOC: M.ERS 10:44 → M.TBA-ER 16:18 → M.2W 02-22 16:17
PROVIDERS: Emergency Medicine; Internal Medicine; Nurse Practitioner Adult Health; Nurse Practitioner Family; ADMIT Internal Medicine; ATTEND Internal Medicine
PROC: 0DB68ZX Excision of Stomach, Via Natural or Artificial Opening Endoscopic, Diagnostic (ICD-10-PCS; principal; 2021-02-21)
PROC: 0W9G3ZZ Drainage of Peritoneal Cavity, Percutaneous Approach (ICD-10-PCS; principal; 2021-02-21)
DX: K70.31 Alcoholic cirrhosis of liver with ascites (principal); K92.2 Gastrointestinal hemorrhage, unspecified; K76.6 Portal hypertension; I10 Essential (primary) hypertension; D69.6 Thrombocytopenia, unspecified; F17.210 Nicotine dependence, cigarettes, uncomplicated; E88.89 Other specified metabolic disorders; I86.8 Varicose veins of other specified sites; K44.9 Diaphragmatic hernia without obstruction or gangrene; E87.6 Hypokalemia; K31.89 Other diseases of stomach and duodenum; Z20.822 Contact with and (suspected) exposure to COVID-19; Z59.0 Homelessness; Z90.49 Acquired absence of other specified parts of digestive tract

== ENCOUNTER 2021-04-29 15:27 | Inpatient (IN) | payer OTHER ==
[~2021-04-29] VITALS: Ht 177.8 cm; Wt 72.6 kg
--- NOTE | ~2021-04-29 | PROC ---
[address] [address] PROCEDURE REPORT Name: MANUEL WHITFIELD Room: [address] IN ..#: [id number] Admission: 04/29/21 Attend Phys: Junaid Mcdonough MD Discharge: Date of : 66 Report #: [id number] THIS REPORT FOR: cc: FAM - No family physician/PCP FAM - No family physician/PCP [facility],Medical Records Staff ~ For GI report, please see the Provation report in Perceptive 7 content. By: 0839Medical Records Staff SENG /GIOVANI
--- NOTE | ~2021-04-29 | PROC ---
[address] [address] PROCEDURE REPORT Name: MANUEL WHITFIELD Room: [address] IN ..#: [id number] Admission: 04/29/21 Attend Phys: Junaid Mcdonough MD Discharge: Date of : 66 Report #: [id number] THIS REPORT FOR: cc: FAM - No family physician/PCP FAM - No family physician/PCP [facility],Medical Records Staff ~ For GI report, please see the Provation report in Perceptive 7 content. By: 0705Medical Records Staff SENG /GIOVANI
[~2021-04-29 15:27] MED LIST changes: +LASIX 20 MG TAB20 MG PO; +MIRALAX17 GM PO; +PRILOSEC OTC20 MG PO; +SPIRONOLACTONE25 MG PO
[2021-04-29 15:35] VITALS: BP 108/61
[2021-04-29 16:00] LABS: ABSOLUTE BASOPHILS 0.1 thou/uL (0.0-0.2); ABSOLUTE LYMPHOCYTES 0.8 thou/uL (0.8-5.3); ABSOLUTE MONOCYTES 0.8 thou/uL (0.0-1.2); ABSOLUTE NEUTROPHILS 8.3 thou/uL (1.6-8.1); BASOPHILS 0.6 %; EOSINOPHILS 0.4 %; LYMPHOCYTES 8.2 %; MCHC 36.5 g/dL (28.0-37.0); MCV 93.3 fL (80.0-100.0); MONOCYTES 8.1 %; MPV 7.2 fl. (7.2-11.1); NUCLEATED RBCS 0 /100WBC; PLATELET COUNT* 179 thou/uL (150-400); POLYS 82.7 %; RBC 2.02 mil/uL (4.50-6.00); RDW-CV 14.4 % (10.5-14.5)
[2021-04-29 16:03] LABS: CALCIUM 7.7 mg/dL (8.5-10.1); CREATININE 0.8 mg/dL (0.6-1.3)
[2021-04-29 16:05] LABS: HEMATOCRIT 18.8 % (42.0-52.0); HEMOGLOBIN 6.9 gm/dL (14.0-18.0)
[2021-04-29 16:08] LABS: MAGNESIUM 1.2 mg/dL (1.8-2.4); TOTAL BILIRUBIN 2.8 mg/dL (<0.1-1.0); TOTAL PROTEIN 6.5 g/dL (6.4-8.2)
[2021-04-29 19:30] VITALS: BP 101/68
[2021-04-29 19:50] VITALS: BP 99/60
[2021-04-30] VITALS (7 sets, daily range): BP systolic 93–118; BP diastolic 60–70
[2021-04-30 01:09] LABS: URINE BLOOD NEGATIVE (Negative); URINE CLARITY CLEAR; URINE COLOR DARK YELLOW; URINE GLUCOSE-RANDOM NEGATIVE (Negative); URINE KETONES 1+ (Negative); URINE LEUKOCYTES-REFLEX NEGATIVE (Negative); URINE NITRITE-REFLEX NEGATIVE (Negative); URINE PROTEIN NEGATIVE (Negative)
[2021-04-30 01:16] LABS: AMP/METHAMP Negative (Negative); BARBITURATES Negative (Negative); BENZODIAZEPINES Negative (Negative); COCAINE Negative (Negative); ICTOTEST (BILI CONFIRMATORY) Positive (Negative); METHADONE Negative (Negative); OPIATES Negative (Negative); PCP Negative (Negative); THC Negative (Negative); URINE BILIRUBIN 1+ (Negative)
[2021-04-30 07:58] LABS: ABSOLUTE LYMPHOCYTES 0.4 thou/uL (0.8-5.3); ABSOLUTE MONOCYTES 0.5 thou/uL (0.0-1.2); ABSOLUTE NEUTROPHILS 4.2 thou/uL (1.6-8.1); BASOPHILS 0.7 %; EOSINOPHILS 0.9 %; LYMPHOCYTES 8.1 %; MCH 33.5 pg (26.0-34.0); MCHC 35.9 g/dL (28.0-37.0); MCV 93.3 fL (80.0-100.0); MONOCYTES 9.1 %; MPV 7.2 fl. (7.2-11.1); NUCLEATED RBCS 0 /100WBC; POLYS 81.2 %; RBC 1.94 mil/uL (4.50-6.00); RDW-CV 15.2 % (10.5-14.5); WBC 5.2 thou/uL (4.0-11.0)
[2021-04-30 08:19] LABS: PLATELET COUNT* 102 thou/uL (150-400)
[2021-04-30 08:20] LABS: CREATININE 0.5 mg/dL (0.6-1.3)
[2021-04-30 08:22] LABS: HEMOGLOBIN 6.5 gm/dL (14.0-18.0)
[2021-04-30 08:23] LABS: HEMATOCRIT 18.1 % (42.0-52.0)
[2021-04-30 08:35] LABS: POTASSIUM 2.2 mmol/L (3.5-5.1)
--- NOTE | 2021-04-30 10:20 | EKG ---
[place] [address] ELECTROCARDIOGRAM REPORT Name: MANUEL WHITFIELD Room: [address] ADM IN [facility]#: [id number] Admission: 04/29/21 Attend Phys: Junaid Mcdonough, Discharge: Date of : 66 Date of Service: 04/29/21 1615 Report #: [id number] THIS REPORT FOR: //name// [facility] ED Test Date: 2021-04-29 Test Time: 16:15:25 Pat Name: MANUEL WHITFIELD Department: Room: [facility] Gender: M President [employer]: JER : 1970 Requested By: Jason Zhang Order Number: [id number] MD: Roger Herbert Measurements Intervals [place] Rate: 98 P: 72 MA: 175 QRS: 60 QRSD: 102 T: 233 QT: 343 QTc: 438 Interpretive Statements Sinus tachycardia Multiple ventricular premature complexes Repol abnrm suggests ischemia, anterolateral Compared to ECG 01/20/2021 15:59:48 Ventricular premature complex(es) now present Sinus bradycardia no longer present Electronically Signed On 04-30-2021 10:20:13 WHALE FISHERMAN by Roger Herbert [email or web address] <ELECTRONICALLY SIGNED> By: Rogre Herbert MD, FACC 04/30/21 1020 1615 1615 Roger Herbert MD, FAC /EPI
[2021-04-30 23:50] LABS: HEMOGLOBIN 7.2 gm/dL (14.0-18.0)
[2021-05-01 00:35] VITALS: BP 103/71
[2021-05-01 04:36] LABS: ABSOLUTE EOSINOPHILS 0.1 thou/uL (0.0-0.7); ABSOLUTE LYMPHOCYTES 0.6 thou/uL (0.8-5.3); ABSOLUTE MONOCYTES 0.3 thou/uL (0.0-1.2); ABSOLUTE NEUTROPHILS 2.8 thou/uL (1.6-8.1); BASOPHILS 1.2 %; LYMPHOCYTES 14.9 %; MCH 32.8 pg (26.0-34.0); MCHC 36.1 g/dL (28.0-37.0); MONOCYTES 8.5 %; MPV 7.1 fl. (7.2-11.1); NUCLEATED RBCS 0 /100WBC; PLATELET COUNT* 85 thou/uL (150-400); POLYS 73.4 %; RBC 1.99 mil/uL (4.50-6.00); RDW-CV 15.8 % (10.5-14.5); WBC 3.8 thou/uL (4.0-11.0)
[2021-05-01 05:00] LABS: HEMATOCRIT 18.1 % (42.0-52.0); HEMOGLOBIN 6.5 gm/dL (14.0-18.0)
[2021-05-01 05:02] LABS: ALBUMIN 2.3 g/dL (3.4-5.0); CREATININE 0.5 mg/dL (0.6-1.3); TOTAL BILIRUBIN 1.6 mg/dL (<0.1-1.0); TOTAL PROTEIN 5.1 g/dL (6.4-8.2)
[2021-05-01 05:05] LABS: POTASSIUM 2.8 mmol/L (3.5-5.1)
[2021-05-01 05:40] VITALS: BP 110/74
[2021-05-01 09:00] VITALS: BP 93/60
[2021-05-01 09:01] LABS: INR 1.7; PROTIME 17.5 Seconds (9.20-11.50)
[2021-05-01 12:13] VITALS: BP 100/63
[2021-05-01 15:22] LABS: HEMATOCRIT 22.7 % (42.0-52.0); HEMOGLOBIN 8.1 gm/dL (14.0-18.0)
[2021-05-01 15:35] LABS: CALCIUM 6.9 mg/dL (8.5-10.1); CREATININE 0.5 mg/dL (0.6-1.3); POTASSIUM 3.5 mmol/L (3.5-5.1)
--- NOTE | 2021-05-01 16:49 | CON ---
[address] [address] CONSULTATION Name: MANUEL WHITFIELD Room: [address] IN .R.#: [id number] Admission: 04/29/21 Attend Phys: Junaid Mcdonough MD Discharge: Date of : 66 Report #: [id number] THIS REPORT FOR: cc: ANGIE - No family physician/PCP FAM - No family physician/PCP Anu Whyte MD ~ DATE OF CONSULTATION: 05/01/2021 Please note at the time of this dictation, the patient was seen and physically examined by myself. REASON FOR CONSULTATION: Acute anemia, alcoholic cirrhosis. HISTORY OF PRESENT ILLNESS: This is a 50-year-old male who is known to our practice who was last here in January, who presented with increasing weakness and nausea and vomiting. He did not state that he had any bright red blood or any melanotic stool or coffee-ground emesis upon admission; however, he is at increased risk for varices secondary to his ongoing alcohol use. On admission, the patient was noted to have a potassium at 2.2 and a hemoglobin of 6.5. He has gotten 2 units of blood thus far and is on potassium protocol at this time. The patient's history is all obtained from the chart. The patient is going through alcoholic withdrawal and is sedated at the time of this consultation. It is noted that the patient is homeless and living out of his car from his [place]. He states he was feeling extremely out of breath and weak. He states this has been ongoing for the last couple of weeks. The patient continues to drink at least 1 pint to 2 of vodka daily. When the patient was here in January of this year, he underwent an EGD by Dr. Whyte that showed medium size hiatal hernia, portal hypertensive gastropathy and on his CT scan at that time in January that showed that his spleen was 14 cm, he had a large amount of ascitic fluid and he had some splenic varices that were noted. ALLERGIES: No known drug allergies. MEDICATIONS FROM HOME: He has been on iron tablet, spironolactone 50 mg, Lasix 20 mg, MiraLax daily, and omeprazole 20 mg. PAST MEDICAL HISTORY: Atrial fibrillation and stent placement back in 04/2020, recurrent alcohol abuse. PAST SURGICAL HISTORY: He has had a cholecystectomy. FAMILY HISTORY: Negative. SOCIAL HISTORY: He is living out of his car and homeless. He continues to smoke daily and drink a pint to 2 [place] [address] CONSULTATION Name: MANUEL WHITFIELD Room: [address] IN [facility]#: [id number] Admission: 04/29/21 Attend Phys: Junaid Mcdonough MD Discharge: Date of : 66 Report #: [id number] REVIEW OF SYSTEMS: Twelve-point review of systems is essentially negative except what is mentioned in the HPI. PHYSICAL EXAMINATION: VITAL SIGNS: Temperature 36.4, pulse 94, respirations 18, blood pressure 110/74. HEART: Regular rate and rhythm. LUNGS: Diminished. ABDOMEN: Soft, positive bowel sounds in all 4 quadrants with no masses or tenderness noted. The patient is very somnolent and difficult to arouse secondary to receiving Haldol and Zyprexa earlier this morning. LABORATORY DATA: Hemoglobin remains at 6.5, white count is 3.8, platelets are 85. His potassium this morning is 2.8. GFR is 175. His sodium is 138. PT and INR were not drawn and those are still pending. Total bilirubin 1.6, alkaline phosphatase 82, ALT 19, AST 55. B12 is 639, iron 143, TIBC 131, percentage sat 109. Chest x-ray is normal. IMPRESSION: 1. Acute anemia. 2. Nausea and vomiting. 3. Alcoholic cirrhosis, drinks 1-2 pints of vodka daily. 4. Hypokalemia. 5. Thrombocytopenia. 6. Ascites. 7. Transaminitis. 8. History of atrial fibrillation. 9. Coronary artery disease with stents placed in 04/2020. PLAN: 1. EGD today with Dr. Whyte. 2. Protonix 40 mg IV push b.i.d. 3. Octreotide drip to start. 4. Transfuse to keep his hemoglobin greater than 7. 5. N.p.o. 6. Manage his alcohol withdrawal. 7. Further recommendations to be made after Dr. Whyte sees the [place] [address] CONSULTATION Name: MANUEL WHITFIELD Room: [address] IN [facility]#: [id number] Admission: 04/29/21 Attend Phys: Junaid Mcdonough MD Discharge: Date of : 66 Report #: [id number] Thank you for allowing us to participate in this patient's care. Please do not hesitate to call with any questions regarding this consult. <ELECTRONICALLY SIGNED> By: Anu Whyte MD 05/01/21 1649 0733 [id number] Whyte MD /nt
[2021-05-01 21:00] VITALS: BP 108/75
[2021-05-02] VITALS: BP 85/46
[2021-05-02 05:10] VITALS: BP 107/69
[2021-05-02 08:05] LABS: HEMATOCRIT 21.4 % (42.0-52.0); HEMOGLOBIN 7.5 gm/dL (14.0-18.0); MCH 32.1 pg (26.0-34.0); MCV 91.5 fL (80.0-100.0); MPV 7.4 fl. (7.2-11.1); RBC 2.34 mil/uL (4.50-6.00); RDW-CV 16.7 % (10.5-14.5); WBC 4.9 thou/uL (4.0-11.0)
[2021-05-02 08:13] LABS: ALBUMIN 2.1 g/dL (3.4-5.0); CALCIUM 7.1 mg/dL (8.5-10.1); CREATININE 0.6 mg/dL (0.6-1.3); POTASSIUM 3.4 mmol/L (3.5-5.1); TOTAL BILIRUBIN 0.9 mg/dL (<0.1-1.0); TOTAL PROTEIN 4.9 g/dL (6.4-8.2)
[2021-05-02 08:25] LABS: INR 1.8; PROTIME 18.3 Seconds (9.20-11.50)
[2021-05-02 08:53] VITALS: BP 101/70
[2021-05-02 12:00] VITALS: BP 110/72
[2021-05-02 16:00] VITALS: BP 97/71
[2021-05-02 20:00] VITALS: BP 92/63
[2021-05-03 00:31] VITALS: BP 99/66
[2021-05-03 04:33] VITALS: BP 97/70
[2021-05-03 04:45] LABS: ABSOLUTE BASOPHILS 0.1 thou/uL (0.0-0.2); ABSOLUTE EOSINOPHILS 0.1 thou/uL (0.0-0.7); ABSOLUTE LYMPHOCYTES 0.8 thou/uL (0.8-5.3); ABSOLUTE MONOCYTES 0.4 thou/uL (0.0-1.2); ABSOLUTE NEUTROPHILS 7.2 thou/uL (1.6-8.1); BASOPHILS 0.9 %; EOSINOPHILS 1.4 %; HEMATOCRIT 24.4 % (42.0-52.0); HEMOGLOBIN 8.5 gm/dL (14.0-18.0); LYMPHOCYTES 9.5 %; MCH 32.9 pg (26.0-34.0); MCHC 34.8 g/dL (28.0-37.0); MCV 94.4 fL (80.0-100.0); MPV 7.1 fl. (7.2-11.1); NUCLEATED RBCS 0 /100WBC; PLATELET COUNT* 139 thou/uL (150-400); POLYS 83.2 %; RBC 2.59 mil/uL (4.50-6.00); RDW-CV 16.5 % (10.5-14.5); WBC 8.6 thou/uL (4.0-11.0)
[2021-05-03 05:18] LABS: ALBUMIN 2.5 g/dL (3.4-5.0); CREATININE 0.6 mg/dL (0.6-1.3); POTASSIUM 3.6 mmol/L (3.5-5.1); TOTAL BILIRUBIN 0.9 mg/dL (<0.1-1.0); TOTAL PROTEIN 5.7 g/dL (6.4-8.2)
[2021-05-03 08:00] VITALS: BP 113/81
[2021-05-03 12:00] VITALS: BP 103/68
[2021-05-03 16:00] VITALS: BP 110/72
[2021-05-03 20:00] VITALS: BP 108/77; BP 92/63
[2021-05-04] VITALS: BP 107/77
[2021-05-04 04:00] VITALS: BP 129/84
[2021-05-04 08:13] LABS: ABSOLUTE EOSINOPHILS 0.1 thou/uL (0.0-0.7); ABSOLUTE LYMPHOCYTES 0.7 thou/uL (0.8-5.3); ABSOLUTE MONOCYTES 0.3 thou/uL (0.0-1.2); ABSOLUTE NEUTROPHILS 4.3 thou/uL (1.6-8.1); BASOPHILS 0.9 %; EOSINOPHILS 1.5 %; HEMOGLOBIN 7.9 gm/dL (14.0-18.0); LYMPHOCYTES 13.3 %; MCH 32.5 pg (26.0-34.0); MCHC 34.2 g/dL (28.0-37.0); MONOCYTES 5.5 %; MPV 7.4 fl. (7.2-11.1); NUCLEATED RBCS 0 /100WBC; PLATELET COUNT* 111 thou/uL (150-400); POLYS 78.8 %; RBC 2.43 mil/uL (4.50-6.00); RDW-CV 16.9 % (10.5-14.5); WBC 5.4 thou/uL (4.0-11.0)
[2021-05-04 08:26] LABS: ALBUMIN 2.1 g/dL (3.4-5.0); CALCIUM 7.7 mg/dL (8.5-10.1); CREATININE 0.5 mg/dL (0.6-1.3); POTASSIUM 3.3 mmol/L (3.5-5.1); TOTAL BILIRUBIN 0.8 mg/dL (<0.1-1.0); TOTAL PROTEIN 4.7 g/dL (6.4-8.2)
[2021-05-04 09:21] VITALS: BP 110/77
[2021-05-04 12:00] VITALS: BP 104/69
[2021-05-04 16:00] VITALS: BP 124/82
[2021-05-04 20:35] VITALS: BP 136/85
[2021-05-05] VITALS: BP 109/76
[2021-05-05 04:00] VITALS: BP 114/70
[2021-05-05 04:33] LABS: ABSOLUTE BASOPHILS 0.1 thou/uL (0.0-0.2); ABSOLUTE EOSINOPHILS 0.1 thou/uL (0.0-0.7); ABSOLUTE LYMPHOCYTES 0.6 thou/uL (0.8-5.3); ABSOLUTE MONOCYTES 0.4 thou/uL (0.0-1.2); ABSOLUTE NEUTROPHILS 3.6 thou/uL (1.6-8.1); BASOPHILS 1.3 %; EOSINOPHILS 1.7 %; HEMATOCRIT 23.4 % (42.0-52.0); LYMPHOCYTES 13.6 %; MCH 32.7 pg (26.0-34.0); MCHC 34.1 g/dL (28.0-37.0); MCV 95.9 fL (80.0-100.0); MONOCYTES 7.8 %; MPV 7.3 fl. (7.2-11.1); NUCLEATED RBCS 0 /100WBC; PLATELET COUNT* 98 thou/uL (150-400); POLYS 75.6 %; RBC 2.44 mil/uL (4.50-6.00); RDW-CV 17.1 % (10.5-14.5); WBC 4.7 thou/uL (4.0-11.0)
[2021-05-05 04:52] LABS: ALBUMIN 1.9 g/dL (3.4-5.0); CALCIUM 7.8 mg/dL (8.5-10.1); CREATININE 0.7 mg/dL (0.6-1.3); POTASSIUM 3.5 mmol/L (3.5-5.1); TOTAL BILIRUBIN 0.7 mg/dL (<0.1-1.0); TOTAL PROTEIN 4.7 g/dL (6.4-8.2)
[2021-05-05 08:00] VITALS: BP 112/72
[2021-05-05] MEDS ORDERED: NEXIUM40 MG PO (10:52)
[2021-05-05 11:01] VITALS: BP 112/72
--- NOTE | 2021-05-05 11:08 | PATH ---
[address] [address] PATHOLOGY RPT PROCEDURE Name: JOE WHITFIELD Room: [address] IN .#: [id number] Admission: 04/29/21 Date of : 66 Discharge: Report #: [id number] Path Case #: [id number] [facility] Accession Number: [id number] . 01 Material submitted: . PART A: duodenum - DUODENAL BIOPSY TO R/O CELIAC SPRUE PART B: gastrointestinal site - GASTRIC BIOPSY FOR GASTRITIS . 01 Clinical history: . HYPOKALEMIA, PANCREATITIS, ANEMIA, ALCOHOL ABUSE . 02 Diagnosis: A. Duodenal biopsy: - Mild active duodenitis with fundic metaplasia suggesting peptic ulcer disease, negative for granulomas, viral inclusions, significant intraepithelial lymphocytosis/villous atrophy and dysplasia/adenomatous change. See comment. . B. Gastric biopsy: - Moderate change active gastritis with abundant Helicobacter pylori organisms, negative for granulomas and dysplasia. (ABIMBOLA:carol; 05/03/2021) QMS 05/03/2021 1455 Local . 02 Comment: Because there is no significant intraepithelial lymphocytosis or villous atrophy in the duodenal biopsy (A), celiac sprue is thought to be unlikely. (ABIMBOLA:carol; 05/03/2021) . Special stain on B: H. pylori immuno . 02 Electronically signed: . Tyrese Buckner MD, Pathologist NPI- [id number] . 01 Gross description: . A. The specimen is received in formalin, labeled "Joe Whitfield, duodenal biopsy". Received are two segments of pale theodore tissue measuring 0.3 cm each in maximum dimensions. The specimen is submitted entirely in cassette A1. . B. The specimen is received in formalin, labeled "Joe Whitfield, gastric biopsy". Received is a segment of pale theodore tissue measuring 0.4 cm in maximum dimensions. The specimen is submitted entirely in cassette B1. (CAA; 05/02/2021) QAC/QAC 05/02/[address] [place] [address] PATHOLOGY RPT PROCEDURE Name: JOE WHITFIELD Room: [address] IN .R.#: [id number] Admission: 04/29/21 Date of : 66 Discharge: Report #: [id number] Path Case #: [id number] . 02 Pathologist provided ICD-10: K29.80, K29.60 . 02 CPT . 725287, 111567, B43177 Specimen Comment: A courtesy copy of this report has been sent to [phone], [phone] Specimen Comment: [id number] Specimen Comment: Report sent to / DR FIGUEROA Specimen Comment: A duplicate report has been generated due to demographic updates. Performed at: [address], [place], [place] [id number] MD Bruno Chacon MD Phone: [phone] [facility]formed at: [facility] [address], [place], [place] [address] MD Tyrese Buckner MD Phone: [phone]
[2021-05-05 12:00] VITALS: BP 104/71
[2021-05-05 13:57] VITALS: BP 112/72
== END 2021-05-05 14:17 | disposition home or self-care (01) | DRG 391 ==
LOC: M.ERS 15:27 → M.TBA-ER 16:34 → M.2W 16:34
PROVIDERS: Anesthesiology; Internal Medicine; Internal Medicine Gastroenterology; Nurse Practitioner Adult Health; Nurse Practitioner Psychiatric/Mental Health; ADMIT Internal Medicine; ATTEND Internal Medicine
PROC: 30233N1 Transfusion of Nonautologous Red Blood Cells into Peripheral Vein, Percutaneous Approach (ICD-10-PCS; principal; 2021-04-29)
PROC: 0DB68ZX Excision of Stomach, Via Natural or Artificial Opening Endoscopic, Diagnostic (ICD-10-PCS; 2021-05-01)
PROC: 0DBN8ZZ Excision of Sigmoid Colon, Via Natural or Artificial Opening Endoscopic (ICD-10-PCS; 2021-05-04)
DX: K29.70 Gastritis, unspecified, without bleeding (principal); K85.20 Alcohol induced acute pancreatitis without necrosis or infection; F10.231 Alcohol dependence with withdrawal delirium; K76.6 Portal hypertension; D62 Acute posthemorrhagic anemia; I48.91 Unspecified atrial fibrillation; D69.6 Thrombocytopenia, unspecified; E87.6 Hypokalemia; I25.10 Atherosclerotic heart disease of native coronary artery without angina pectoris; K70.31 Alcoholic cirrhosis of liver with ascites; R74.01 Elevation of levels of liver transaminase levels; F17.210 Nicotine dependence, cigarettes, uncomplicated; E86.0 Dehydration; F19.90 Other psychoactive substance use, unspecified, uncomplicated; K44.9 Diaphragmatic hernia without obstruction or gangrene; K31.89 Other diseases of stomach and duodenum; K64.8 Other hemorrhoids; K63.5 Polyp of colon; Z20.822 Contact with and (suspected) exposure to COVID-19; Z95.0 Presence of cardiac pacemaker; Z90.49 Acquired absence of other specified parts of digestive tract; Z95.5 Presence of coronary angioplasty implant and graft; Z59.00 Homelessness unspecified

== ENCOUNTER 2021-05-21 18:14 | Emergency (ER) | payer OTHER ==
[~2021-05-21] VITALS: Ht 177.8 cm; Wt 77.1 kg
[~2021-05-21 18:14] MED LIST changes: +NEXIUM40 MG PO
[2021-05-21 19:27] LABS: ABSOLUTE BASOPHILS 0.1 thou/uL (0.0-0.2); ABSOLUTE EOSINOPHILS 0.1 thou/uL (0.0-0.7); ABSOLUTE MONOCYTES 0.5 thou/uL (0.0-1.2); ABSOLUTE NEUTROPHILS 6.2 thou/uL (1.6-8.1); BASOPHILS 0.9 %; EOSINOPHILS 1.6 %; HEMATOCRIT 28.8 % (42.0-52.0); HEMOGLOBIN 9.8 gm/dL (14.0-18.0); LYMPHOCYTES 12.4 %; MCH 34.5 pg (26.0-34.0); MCV 101.5 fL (80.0-100.0); MONOCYTES 6.2 %; MPV 6.4 fl. (7.2-11.1); NUCLEATED RBCS 0 /100WBC; PLATELET COUNT* 109 thou/uL (150-400); POLYS 78.9 %; RBC 2.84 mil/uL (4.50-6.00); RDW-CV 19.8 % (10.5-14.5); WBC 7.8 thou/uL (4.0-11.0)
[2021-05-21 20:11] LABS: CALCIUM 7.8 mg/dL (8.5-10.1); CREATININE 0.5 mg/dL (0.6-1.3); POTASSIUM 3.3 mmol/L (3.5-5.1)
[2021-05-21 20:16] LABS: ALBUMIN 2.3 g/dL (3.4-5.0); TOTAL BILIRUBIN 0.7 mg/dL (<0.1-1.0); TOTAL PROTEIN 5.9 g/dL (6.4-8.2)
[2021-05-21 22:14] VITALS: BP 151/102
--- NOTE | 2021-05-22 16:01 | EKG ---
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: [place] : 1970 Requested By: Barbara Lai Order Number: [id number] MD: Jarrod Marcos Measurements Intervals [place] Rate: 84 P: 54 LA: 159 QRS: 59 QRSD: 112 T: 43 QT: 395 QTc: 467 Interpretive Statements Sinus rhythm Borderline intraventricular conduction delay Compared to ECG 04/29/2021 16:15:25 Sinus tachycardia no longer present Ventricular premature complex(es) no longer present Early repolarization no longer present Possible ischemia no longer present Electronically Signed On 05-22-2021 16:01:21 OFFICE AUTOMATION TECHNICIAN by Jarrod Marcos [email or web address] <ELECTRONICALLY SIGNED> By: Jarrod Marcos MD, FACC 05/22/21 1601 19 19 Jarrod Marcos MD, FACC /EPI
== END 2021-05-21 22:21 | disposition home or self-care (01) ==
LOC: M.ERS 18:14
PROVIDERS: Physician Assistant
DX: F10.20 Alcohol dependence, uncomplicated (principal); Y90.9 Presence of alcohol in blood, level not specified; D64.9 Anemia, unspecified; K74.60 Unspecified cirrhosis of liver; F17.210 Nicotine dependence, cigarettes, uncomplicated; R60.0 Localized edema; Z90.49 Acquired absence of other specified parts of digestive tract